=== PATIENT | male | born 1965 | race Caucasian/White ===

== ENCOUNTER 2021-09-07 17:28 | Emergency (ER) | payer BC, MEDICARE ==
[2021-09-07] MEDS ORDERED: Albuterol/Ipratropium 3.0-0.5 MG/3 ML Neb Soln NEB ONE ×3 (20:09→20:14)
[2021-09-07 20:22] LABS: CORONAVIRUS COVID-19 NAA POSITIVE (NEGATIVE); INFLUENZA A NAA NEGATIVE (NEGATIVE); INFLUENZA B NAA NEGATIVE (NEGATIVE)
[2021-09-07 21:10] LABS: BLOOD UREA NITROGEN,BUN 22 mg/dL (7.0-18.0); CARBON DIOXIDE,CO2 31.3 mmol/L (21.0-32.0); CHLORIDE,CL 95 mmol/L (98-107); GLUCOSE RANDOM 106 mg/dL (74-106); POTASSIUM,K 4.4 mmol/L (3.5-5.1); SODIUM,NA 132 mmol/L (136-148)
[2021-09-07 22:32] VITALS: BP 134/75; PULSE 88
== END 2021-09-07 22:30 | disposition home or self-care (01) ==
LOC: MW.ED 17:28
DX: U07.1 COVID-19 (principal); J20.9 Acute bronchitis, unspecified; I10 Essential (primary) hypertension; R60.0 Localized edema
CPT/HCPCS: 0240U; 36415; 71045; 80048; 83735; 83880; 84484; 85025; 93005; 94640; 99285; J7620-GY

== ENCOUNTER 2024-09-09 13:06 | Emergency (ER) | payer BC ==
[2024-09-09] MEDS: predniSONE 20 MG Tab PO ONE (14:21)
[2024-09-09] MEDS: Albuterol/Ipratropium 3.0-0.5 MG/3 ML Neb Soln NEB ONE (14:21)
[2024-09-09 14:43] VITALS: BP 137/83; PULSE 80
== END 2024-09-09 14:35 | disposition home or self-care (01) ==
LOC: MW.ED 13:06
DX: J18.9 Pneumonia, unspecified organism (principal); J44.1 Chronic obstructive pulmonary disease with (acute) exacerbation; I10 Essential (primary) hypertension; Z87.891 Personal history of nicotine dependence; Z79.51 Long term (current) use of inhaled steroids; Z79.899 Other long term (current) drug therapy
CPT/HCPCS: 71046; 87428; 93005; 99284; A9270; J7620